=== PATIENT | female | born 1945 | race Caucasian/White ===

== ENCOUNTER 2017-04-24 09:42 | Outpatient (CLI) | payer MEDICARE ==
--- NOTE | 2017-04-24 19:55 | ULT ---
ABDOMINAL ULTRASOUND 04/24/17 Ultrasonography of the abdomen was performed for evaluation of right upper quadrant pain. the liver w as normal in appearance and measured 14.5 cm in oblique sagittal length. No hepatic abnormalities wer e seen. No masses or dilated ducts were apparent. The gallbladder does contain several gallstones. Th e wall was 2 mm in thickness which is probably still normal. The common bile duct is 3 mm in caliber which is normal. The pancreas was largely obscured by gas. The right kidney appears normal and is 9.6 cm in length. The left kidney was very poorly seen and was 9.0 cm in length. There was no gross hydr onephrosis. The spleen was normal in size. The inferior vena cava appears normal. There was no evidence of abdominal aortic aneurysm. The AP diameter of the aorta proximally was about 1.6 cm, 1.3 cm mid aorta, 1.2 cm distal aorta. IMPRESSION: 1. Gallstones. 2. No evidence of aortic aneurysm or other acute abdominal process. POS: HOME
== END 2017-04-24 09:43 | disposition home or self-care (01) ==
LOC: BURULT 09:42
PROVIDERS: ATTEND Surgery
DX: R10.13 Epigastric pain (principal); R09.89 Other specified symptoms and signs involving the circulatory and respiratory systems; K80.20 Calculus of gallbladder without cholecystitis without obstruction
CPT/HCPCS: 76700

== ENCOUNTER 2018-10-14 11:46 | Emergency (ER) | payer MEDICARE ==
[2018-10-14] MEDS ORDERED: predniSONE 20 MG TAB ONE (12:38)
== END 2018-10-14 13:18 | disposition home or self-care (01) ==
LOC: BURERS 11:46
DX: T63.441A Toxic effect of venom of bees, accidental (unintentional), initial encounter (principal); F17.210 Nicotine dependence, cigarettes, uncomplicated
CPT/HCPCS: 99282; J7512

== ENCOUNTER 2020-01-15 20:55 | Emergency (ER) | payer MEDICARE ==
[2020-01-15 21:34] LABS: Bilirubin Small (Negative); Blood, Urine Negative (Negative); Clarity Cloudy (Clear); Glucose, Urine (Dipstick) Negative (Negative); Ketone, Urine Trace mg/dL (Negative); Leukocyte Negative (Negative); Nitrite Negative (Negative); Protein, Urine (Dipstick) 30 mg/dL (Neg-Trace); Specific Gravity, Urine 1.025 (1.005-1.030); Urobilinogen 0.2 mg/dL (Less than 2); pH, Urine 5.5 (5.0-9.0)
[2020-01-15 21:42] LABS: Bacteria/HPF Rare-Few HPF (None Seen); RBC/HPF None Seen HPF (0-3); Squamous Epithelial 0-3 HPF (0-3); WBC/HPF 0-3 HPF (0-3)
[2020-01-15] MEDS ORDERED: Ondansetron PF 4 MG/2 ML Vial ONE (21:48)
[2020-01-15] MEDS ORDERED: Morphine 4 MG/ML VIAL ONE (21:48)
[2020-01-15 22:20] LABS: Hemoglobin 12.3 g/dL (12.0-16.0); Mean Corpuscular HGB CONC 30.6 g/dL (32.0-36.0); Mean Corpuscular Hemoglobin 33.2 pg (27.0-31.0); Mean Platelet Volume 7.8 fL (7.4-10.4); Platelet Count 341 thou/uL (130-400); RBC Distribution Width 12.9 % (11.5-14.5); Red Blood Cell (RBC) Count 3.71 mill/uL (4.20-5.40); White Blood Cell (WBC) Count 13.7 thou/uL (4.8-10.8)
[2020-01-15 22:29] LABS: ALT (SGPT) 8 U/L (8-55); AST (SGOT) 13 U/L (5-34); Alkaline Phosphatase 61 U/L (40-110); Anion Gap 18 mmol/L (10-20); BUN (Urea Nitrogen) 24 mg/dL (9.8-20.1); Bilirubin, Total 0.2 mg/dL (0.2-1.2); Calc. Creatinine Clearance 0 mL/min (70-130); Calcium 10.1 mg/dL (7.8-10.44); Carbon Dioxide 24 mmol/L (23-31); Chloride 102 mmol/L (98-107); Estimated GFR-MDRD 35; Globulin 3.1 g/dL (2.4-3.5); Glucose 100 mg/dL (83-110); Lipase 19 U/L (8-78); Potassium 4.3 mmol/L (3.5-5.1); Protein, Total 7.1 g/dL (6.0-8.3); Sodium 140 mmol/L (136-145)
[2020-01-15 22:35] LABS: Lymphocytes 10 % (21-51); MDiff Complete? YES; Macrocytosis SLIGHT = 6-15 cells (100X) (0-5/hpf); Monocytes 2 % (0-10); Neutrophil 88 % (42-75); Platelet Morphology Comment Appears Adequate
[2020-01-15] MEDS ORDERED: Lidocaine Viscous Sol 2% 15 ml UD Cup ONE (23:01)
[2020-01-15] MEDS ORDERED: Mag-Al Plus 1200 MG/1200 MG/120 MG/30 ML UDCUP ONE (23:01)
[2020-01-15] MEDS ORDERED: HYDROcodone/Acetaminophen 5/325 mg Tablet ONE (23:01)
[2020-01-15] MEDS ORDERED: Pantoprazole 40 MG VIAL ONE (23:10)
--- NOTE | 2020-01-16 11:00 | CT ---
PRELIMINARY REPORT/[facility]/EMERGENCY AFTER HOURS PROCEDURE: Receipt of this report by the clinical staff was confirmed with Iraida Shaw RN by Ana Farooq Jan 15, 2020 22:46:00 CDT. Addendum electronically signed by Ana Farooq on January 15, 2020 10:46:09 PM CDT EXAM: CT Abdomen and Pelvis Without Intravenous Contrast CLINICAL HISTORY: PT STATE SHE STARTED HAVING ABD PAIN 3 WEEKS AGO AND IT IS GETTING WORSE, PT STATES HAS NO GALLBLADDE R, APPENDIX AND HAS HAD A HYSTO, PT IS ALLERGIC TO IODINE CONTRAST, PRIOR CT ABD/PEL WITH DONE 3, ER PT TECHNIQUE: Axial computed tomography images of the abdomen and pelvis without intravenous contrast. CONTRAST: None. COMPARISON: None provided. FINDINGS: LUNG BASES: No basilar airspace consolidation or pleural effusion. LIVER: Unremarkable. GALLBLADDER AND BILE DUCTS: Gallbladder surgically absent. No biliary ductal dilatation. PANCREAS: Unremarkable. SPLEEN: Unremarkable. ADRENAL GLANDS: Unremarkable. KIDNEYS, URETERS, AND BLADDER: Unremarkable. No hydronephrosis or nephrolithiasis. No ureteral or bladder calculi. STOMACH AND BOWEL: Postsurgical changes of the bowel are noted. Rectum appears mildly thickened. Patulous loop of post surgical bowel seen in the central pelvis. No dilated loops to suggest obstruction. There is marked t hickening of the distal stomach near the antrum/pylorus with surrounding inflammatory changes. APPENDIX: No CT evidence for appendicitis. PERITONEUM: No free fluid. No free air. LYMPH NODES: Small lymph nodes are seen along the gastric antrum. No other lymphadenopathy. REPRODUCTIVE: Unremarkable as visualized. VASCULATURE: No aortic aneurysm. ABDOMINAL WALL AND SOFT TISSUES: Unremarkable. BONES: No acute osseous abnormalities. Degenerative changes in the pelvis and spine are present. Most severe degenerative changes are seen in the lower lumbar levels degenerative disc height loss and facet art hrosis. There is grade 1 anterolisthesis of L4-L5. IMPRESSION: Marked thickening and surrounding inflammatory changes are seen at the distal stomach near the antrum /pylorus. Additionally, there are multiple small lymph nodes present adjacent to the stomach. These findings are concerning for possible ulcerative disease, gastritis or possibly malignancy. No evide nce of perforation. No other acute intra-abdominal pelvic abnormalities. Additional findings as above. ELECTRONICALLY SIGNED BY: Josh Loredo DO Jan 15, 2020 10:41:27 PM CDT This report is intended for review by the ordering physician only, in accordance of law. If you recei ve this report in error, please call [facility] at [phone]. FINAL REPORT CT OF THE ABDOMEN AND PELVIS WITHOUT CONTRAST: Date: 01/15/[address] of the abdomen and pelvis was done without IV contrast and compared with a 2013 study. The lung bases are clear. The liver, spleen, pancreas, adrenal glands, kidneys, and abdominal aorta were unremarkable in appear ance within the limitations of a noncontrast study. There has been a cholecystectomy since the prior exam. There is prominent thickening of the distal portion of the stomach in the antropyloric region. There may even be a little bit of inflammatory change in the fat around it. Several small lymph nodes are n oted in the vicinity. These are all new findings. The possibility of peptic ulcer disease is raised, but gastric malignancy would also be in the differential. Further workup is needed. The small bowel shows no dilation. There are multiple air fluid levels in the colon and prior postope rative changes seen in the colon. There is no organization of the loops to suggest that this is an ob struction. It is more of a patulous postoperative appearance. No free air or free fluid was detected. CT of the pelvis showed no pelvic masses, free fluid, or inflammatory changes. There may be some mild thickening of the rectal wall, but this is less certain. IMPRESSION: Development of severe thickening of the antropyloric portion of the stomach with some surrounding inf lammatory changes and possibly small nodes. Inflammatory versus neoplastic etiologies are entertained . Further follow-up required. Report in agreement with preliminary reading by [facility]. POS: HOME
== END 2020-01-15 22:21 | disposition home or self-care (01) ==
LOC: BURERS 20:55
DX: K29.70 Gastritis, unspecified, without bleeding (principal); F17.210 Nicotine dependence, cigarettes, uncomplicated
CPT/HCPCS: 74176; 80053; 81003; 81015; 83605; 83690; 85025; 93005; 94760; 96374; 96375; C9113; J2270; J2405